=== PATIENT | male | born 1955 | race Caucasian/White ===

== ENCOUNTER → 2018-12-22 | Outpatient (CLI) | payer MEDICARE ==
--- NOTE | 2018-12-22 10:46 | MR ---
EXAMINATION TYPE: MR shoulder RT wo con DATE OF EXAM: 12/22/2018 COMPARISON: None HISTORY: Rt shoulder pain, Strain TECHNIQUE: Multiplanar, multisequence imaging of the right shoulder is performed without contrast. FINDINGS: Rotator Cuff: There is some thickening with increased signal noted within the rotator cuff consistent with tendinosis Acromioclavicular Joint: Hypertrophic changes of the acromioclavicular joint causes mass effect on th e musculotendinous junction of supraspinatus Glenohumeral Joint: Intact Labrum: The anterior labrum shows a somewhat truncated appearance, there may be of some labral forame n, difficult to exclude labral tear Biceps Tendon: The long head of biceps is in normal location within bicipital groove. Fluid signal ar ound the tendon suggestive of tenosynovitis Bone marrow signal: No focal abnormal marrow signal is appreciated. Other: Fluid signal is present in the subacromial subdeltoid bursa. There may be a small distal acrom ial spur present. Fluid signal present along the subscapularis muscular tendinous junction may be due to fluid, difficult to exclude ganglion cyst IMPRESSION: Tendinosis of the rotator cuff, correlate for possible impingement. Findings along the labrum is desc ribed may be indicative of some labral foramen
== END | disposition home or self-care (01) ==
LOC: RADMRIMAIN 09:11
PROVIDERS: ATTEND Family Medicine
DX: M67.813 Other specified disorders of tendon, right shoulder (principal)